=== PATIENT | female | born 1985 | race Caucasian/White ===

== ENCOUNTER 2020-08-21 17:05 | Emergency (ER) | payer OTHER ==
[~2020-08-21] VITALS: Ht 167.6 cm; Wt 59.0 kg
[2020-08-21] MEDS ORDERED: BIRTH CONTROL (17:20)
[2020-08-21] MEDS ORDERED: ZANAFLEX4 MG PO (20:06)
[2020-08-21] MEDS ORDERED: TRAMADOL 50 MG50 MG PO (20:06)
[2020-08-21] MEDS ORDERED: IBUPROFEN 800800 M1 PO (20:06)
[2020-08-21 20:29] VITALS: BP 136/95
== END 2020-08-21 20:29 | disposition home or self-care (01) ==
LOC: M.ERS 17:05
DX: S29.012A Strain of muscle and tendon of back wall of thorax, initial encounter (principal); S16.1XXA Strain of muscle, fascia and tendon at neck level, initial encounter; S40.022A Contusion of left upper arm, initial encounter; M53.3 Sacrococcygeal disorders, not elsewhere classified; Z91.018 Allergy to other foods; V89.2XXA Person injured in unspecified motor-vehicle accident, traffic, initial encounter; Y93.89 Activity, other specified; Y92.89 Other specified places as the place of occurrence of the external cause; Y99.8 Other external cause status

== ENCOUNTER 2020-09-01 19:04 | Emergency (ER) | payer OTHER ==
[~2020-09-01] VITALS: Ht 167.6 cm; Wt 59.9 kg
[~2020-09-01 19:04] MED LIST: BIRTH CONTROL; IBUPROFEN 800800 M1 PO; TRAMADOL 50 MG50 MG PO; ZANAFLEX4 MG PO
[2020-09-01 19:10] VITALS: BP 127/82
[2020-09-01] MEDS ORDERED: DIAZEPAM 5 MG5 MG PO (19:39)
[2020-09-01] MEDS ORDERED: MEDROLDOSEPACK PO (19:39)
[2020-09-01] MEDS ORDERED: MOBIC15 MG PO (19:39)
== END 2020-09-01 19:56 | disposition home or self-care (01) ==
LOC: M.ERS 19:04
DX: M54.2 Cervicalgia (principal); F17.210 Nicotine dependence, cigarettes, uncomplicated; Z91.018 Allergy to other foods